=== PATIENT | male | born 1985 | race Caucasian/White ===

== ENCOUNTER 2016-10-23 13:38 | Emergency (ER) | payer SELFPAY ==
[2016-10-23 17:09] LABS: Hemoglobin 14.8 gm/dL (13.5-18.0); Mean Cell Volume 92.4 fl (78-100); Mean Corpuscular Hemoglobin 30.4 pg (27-31); Mean Corpuscular Hgb Conc 32.9 g/dl (32-36); Mean Platelet Volume 10.2 fl (6.0-9.5); Neutrophil # 2.9 K/mm3 (1.3-6.0); Neutrophil % 54.3 % (42-75.0); Platelet Count 219 K/mm3 (150-450); Red Blood Count 4.87 M/mm3 (4.7-6.0); Red Cell Distribution Width 13.3 % (11.5-14.0); White Blood Count 5.4 K/mm3 (4.0-10.5)
[2016-10-23 17:28] LABS: ALT 33 U/L (19-67); AST 24 U/L (0-48); Albumin * 3.9 gm/dl (3.4-5.0); Alkaline Phosphatase * 48 U/L (50-170); Anion Gap 11.8 mmol/L (6.8-13.8); BUN/Creatinine Ratio 15.1 (9.0-21.6); Bilirubin, Total 0.5 mg/dL (0.0-1.1); Blood Urea Nitrogen 11 mg/dL (6-23); Ca. Corrected For Albumin 8.7 mg/dL (8.4-10.2); Calcium * 8.9 mg/dL (7.9-10.9); Carbon Dioxide 30.8 mmol/L (24-32.6); Chloride 103 mmol/L (97-106); Glucose * 93 mg/dL (70-110); Potassium 4.6 mmol/L (3.4-4.6); Salicylate Less than 2.8 mg/dL (2.8-20.0); Sodium 141 mmol/L (132-142); TSH * 2.167 uIU/mL (0.358-3.74); Total Protein 7.1 gm/dL (6.2-8.2)
[2016-10-23 18:57] LABS: Cocaine Ur Negative (NEGATIVE); Urine Barbiturate Negative (NEGATIVE); Urine Benzodiazepines Negative (NEGATIVE); Urine Opiates Negative (NEGATIVE); Urine PCP Negative (NEGATIVE)
[2016-10-23 18:58] LABS: Urine THC Positive (NEGATIVE)
--- NOTE | 2016-10-23 19:43 | ERNOTE ---
Psychological HPI - Date Date of Service: 10/23/16 - General Chief Complaint: Psychiatric Problem Source: Reports: patient Exam Limitations: Reports: no limitations - Immun/Allergies/Home Medications Allergies/Adverse Reactions: Allergies cefaclor [From Ceclor] Adverse Reaction (Verified 10/23/16 14:02) tetanus and diphtheria toxoids Adverse Reaction (Verified 10/23/16 14:02) Home Medications: HOME MEDICATIONS NK [No Home Medication] 10/23/16 [Last Taken Unknown] - History of Present Illness Narrative: patient presents to the ED for psychiatric help. He was treated for bipolar in senior care and did well. He has been out of senior care for nearly a decade and has't been treated. He relates he tries to stay sober but will occasionally relapse. He has had a recent self mutilation because get will get mad at his new ( since the end of last year). He relates he can normally control it but sometimes he cannot control things and gets very med. He last self mutilated 2 days ago. No active SI or HI. He wants something to help him as he is not sure when he will get mad. Time Seen by Provider: 10/23/16 16:33 Arrived by: Reports: private car Onset/duration: Reports: intermittent Intent: Reports: suicide, other - self mutilation when angry. Situational Problems: Reports: spouse Associated Symptoms: Reports: angry. Denies: agitated, paranoid, confused, hallucinating, suicidal thoughts Prior Treament: Denies: recently seen Review of Systems - Review of Systems Constitutional: Absent: fever ENT: Present: no symptoms reported Respiratory: Absent: shortness of breath Cardiology: Absent: chest pain Gastrointestinal/Abdominal: Absent: abdominal pain Genitourinary: Absent: dysuria All Other Systems: All systems neg except as marked - Patient's Past Medical History Patient History - Medical: Anxiety, Bipolar, Depression Patient History - Cardiac/Respiratory: Hypertension Patient History - Cancer: No Hx of Cancer Patient History - Surgical Procedures: No surgical history Patient History - Other: None - Social History Living Situations: home Psych History: Hx of Anxiety, Hx of Depression, Hx of Schizophrenia Smoking Status: Current every day smoker Alcohol Use: occasionally Drug Use: meth - Immunizations Immunizations Up to Date: No Physical Exam - Physical Exam General Appearance: Present: alert, no apparent distress Eye Exam: Normal inspection: bilateral, PERRL: bilateral Ears, Nose, Throat: Present: normal ENT inspection Neck: Present: normal inspection Respiratory: Present: no respiratory distress, normal breath sounds, no accessory muscle use, lungs clear Cardiovascular/Chest: Present: regular rate, rhythm, normal peripheral pulses Gastrointestinal/Abdominal: Present: normal bowel sounds, nondistended, soft. Absent: tenderness Back Exam: Present: normal range of motion Extremity Exam: Present: normal inspection, other - healing self mutilation johnson left arm. No infection Neurological Exam: Present: alert, no motor/sensory deficits, packager machine II-XII nml as tested, other - No agiation. Some flat affect. Skin Exam: Present: normal color ED Progress - Results and Orders Patient's Lab Results:: I have reviewed the patient's lab results. - Vital Signs Patient's Vital Signs:: I have reviewed the patient's vital signs. Vital Signs: Vital Signs 10/23/16 13:51 Temperature 36.8 C Pulse Rate 88 Respiratory 14 Rate Blood Pressure 160/96 O2 Sat by Pulse 99 Oximetry - Progress/Reassessment Chief Complaint: Psychiatric Problem - Transfer of Care Physician Sign Out: Peter Doss Receiving Physician: Merlin Lagunas Additional Notes: Await attempt for inpatient eval. Departure Clinical Impression: Self-mutilation - Departure
[2016-10-23 20:13] VITALS: BP 136/92
== END 2016-10-23 21:40 | disposition home or self-care (01) ==
LOC: ER 13:38
DX: F99 Mental disorder, not otherwise specified (principal); Z91.5 Personal history of self-harm
CPT/HCPCS: 36415; 80053; 80307; 84443; 85025; 99284; G0480; G0481

== ENCOUNTER 2017-01-05 09:45 | Emergency (ER) | payer OTHER ==
[2017-01-05] MEDS ORDERED: NORMAL SALINE 1,000 ML IV ONE (09:56)
[2017-01-05 10:04] LABS: Hematocrit 40.7 % (42.0-52.0); Hemoglobin 13.9 gm/dL (13.5-18.0); Mean Cell Volume 89.3 fl (78-100); Mean Corpuscular Hemoglobin 30.5 pg (27-31); Mean Corpuscular Hgb Conc 34.2 g/dl (32-36); Mean Platelet Volume 10.4 fl (6.0-9.5); Neutrophil # 4.5 K/mm3 (1.3-6.0); Neutrophil % 67.7 % (42-75.0); Platelet Count 197 K/mm3 (150-450); Red Blood Count 4.56 M/mm3 (4.7-6.0); Red Cell Distribution Width 13.1 % (11.5-14.0); White Blood Count 6.6 K/mm3 (4.0-10.5)
--- NOTE | 2017-01-05 10:05 | ERNOTE ---
Medical Problem HPI - General Chief Complaint: Drug Overdose Source: patient, EMS Exam Limitations: no limitations - Immun/Allergies/Home Medications Immunizations: IMMUNIZATION HX Immunizations Up to Date No Allergies/Adverse Reactions: Allergies cefaclor [From Ceclor] Adverse Reaction (Verified 01/05/17 10:08) tetanus and diphtheria toxoids Adverse Reaction (Verified 01/05/17 10:08) Home Medications: HOME MEDICATIONS Amphetamine [Adzenys Xr-Odt 12.5 mg Tablet] 12.5 mg PO DAILY 01/05/17 [Last Taken Unknown] clonazePAM [Klonopin] 1 mg PO HS PRN 01/05/17 [Last Taken Unknown] traZODone HCL [Trazodone HCl] 50 mg PO HS 01/05/17 [Last Taken Unknown] - History of Present History Narrative: Patient is brought into the emergency department by the EMS service after the called stating that Rock taken an inordinate amount of his medications. Patient states that he was not suicidal however he took roughly 30 trazodone 6 Klonopin to assist him to sleep for a day or 2 and hopefully all of his problems are gone away. Patient stated that he wash down the variety of pills with 2 shots of whiskey. Patient is adamant in stating that he is not suicidal , but does admit to poor judgment. Patient states that he has been taking his trazodone as it has been prescribed however his last prescription was filled one month ago and the bottle is now empty. It is unlikely that there were 30 trazodone in the bottle as the was prescribed on December 07 of this year. Timing: constant Severity: mild Review of Systems - Review of Systems Constitutional: Present: See HPI EYE: Present: no symptoms reported ENT: Present: no symptoms reported Respiratory: Present: no symptoms reported Cardiology: Present: no symptoms reported Gastrointestinal/Abdominal: Present: no symptoms reported Genitourinary: Present: no symptoms reported Musculoskeletal: Present: no symptoms reported Skin: Present: no symptoms reported Neurological: Present: no symptoms reported Endocrine: Present: no symptoms reported Hematologic/Lymphatic: Present: no symptoms reported Psych: Present: other - while the patient does admit to some underlying depression he states he is not suicidal - Patient's Past Medical History Patient History - Medical: Anxiety, Bipolar, Depression Patient History - Cardiac/Respiratory: Hypertension Patient History - Cancer: No Hx of Cancer Patient History - Surgical Procedures: No surgical history Patient History - Other: None - Social History Living Situations: home Abuse History: Hx of Substance Use Psych History: Hx of Anxiety, Hx of Depression, Hx of Schizophrenia Alcohol Use: occasionally Drug Use: meth - Immunizations Immunizations Up to Date: No Physical Exam - Physical Exam General Appearance: Present: wd/wn, alert, no apparent distress Eye Exam: Normal inspection: bilateral, PERRL: bilateral Ears, Nose, Throat: Present: normal ENT inspection, normal pharynx, other - extraordinarily poor dentition Neck: Present: normal inspection, nontender Respiratory: Present: no respiratory distress, normal breath sounds, no accessory muscle use, chest nontender, lungs clear Cardiovascular/Chest: Present: no murmur, normal peripheral pulses, tachycardia Gastrointestinal/Abdominal: Present: normal bowel sounds, nontender, nondistended, soft, no organomegaly Rectal Exam: Present: deferred Back Exam: Present: normal inspection, normal range of motion Extremity Exam: Present: normal inspection, non-tender, no edema, normal range of motion Neurological Exam: Present: alert, oriented, normal mood/affect Skin Exam: Present: normal color, warm/dry Lymphatic Exam: Present: no adenopathy ED Progress - Results and Orders Patient's Lab Results:: I have reviewed the patient's lab results. - Vital Signs Patient's Vital Signs:: I have reviewed the patient's vital signs. - EKG EKG Comments: EKG reviewed by me - Progress/Reassessment Chief Complaint: Drug Overdose Plan - Plan Plan: Patient once again adamantly denies being suicidal he states he has taken excess doses of trazodone in the past and it always helps him sleep and he was unaware that the amount that he took could've possibly been a problem. Now that the alcohol level is likely gone down to close to 0 from the 0.09 that it was patient is now up walking around and is desirous of going home. Patient did agree to have at least a second alcohol level done, and he showed no abnormalities on his EKG. He was given an amp of bicarbonate IV as well as 2 A in a bag of LR to help alkalize the urine may help excrete the trazodone. Also given 50 g of activated charcoal with sorbitol is we're within the 2 hours from the time of ingestion. The patient's is here agrees to keep an eye on him throughout the day and agrees to bring him back if he starts acting abnormally Departure - Departure Clinical Impression: Medication administered in error Qualifiers: Encounter type: initial encounter Injury intent: accidental or unintentional Qualified Code(s): T50.901A - Poisoning by unspecified drugs, medicaments and biological substances, accidental (unintentional), initial encounter Condition: Good Instructions: Basics of Medicine Management, Accidental Overdose
[2017-01-05 10:09] LABS: Prothrombin Time (Patient) 10.4 Seconds (9.4-11.4)
[2017-01-05 10:16] LABS: ALT 23 U/L (19-67); AST 17 U/L (0-48); Albumin * 3.4 gm/dl (3.4-5.0); Alkaline Phosphatase * 50 U/L (50-170); Anion Gap 12.1 mmol/L (6.8-13.8); BUN/Creatinine Ratio 11.1 (9.0-21.6); Bilirubin, Total 0.2 mg/dL (0.0-1.1); Blood Urea Nitrogen 8 mg/dL (6-23); CK Total * 195 U/L (0-259); Ca. Corrected For Albumin 8.7 mg/dL (8.4-10.2); Calcium * 8.5 mg/dL (7.9-10.9); Carbon Dioxide 28.3 mmol/L (24-32.6); Chloride 104 mmol/L (97-106); Glucose * 92 mg/dL (70-110); Magnesium 1.7 mg/dL (1.2-2.8); Potassium 3.4 mmol/L (3.4-4.6); Salicylate Less than 2.8 mg/dL (2.8-20.0); Sodium 141 mmol/L (132-142); Total Protein 6.7 gm/dL (6.2-8.2)
[2017-01-05] MEDS ORDERED: CHARCOAL/SORBITOL SOLUTION 50 G/240 ML BTL PO ONE ×2 (10:27→10:29)
[2017-01-05 10:41] LABS: Urine Bilirubin Negative (NEGATIVE); Urine Blood Negative /ul (NEGATIVE); Urine Ketone Negative (NEGATIVE); Urine Nitrite Negative (NEGATIVE); Urine Protein Negative (NEGATIVE); Urine Urobilinogen Normal (NORMAL); Urine pH 7.5 pH (5.0-7.0)
[2017-01-05] MEDS ORDERED: SODIUM BICARBONATE 1 MEQ/ML SYRG IV ONE ×2 (10:49→11:15)
[2017-01-05 10:52] LABS: Urine Appearance Clear; Urine Bacteria None Seen; Urine Color Yellow; Urine RBC None Seen /hpf (0-5); Urine WBC None Seen /hpf (0-5)
[2017-01-05 11:01] LABS: Cocaine Ur Negative (NEGATIVE); Urine Barbiturate Negative (NEGATIVE); Urine Benzodiazepines Negative (NEGATIVE); Urine Opiates Negative (NEGATIVE); Urine PCP Negative (NEGATIVE); Urine THC Negative (NEGATIVE)
[2017-01-05] MEDS ORDERED: SODIUM BICARBONATE IV ONE ×4 (12:00)
[2017-01-05] MEDS ORDERED: RINGERS LACTATED IV ONE ×4 (12:00)
[2017-01-05 14:05] VITALS: BP 134/82
== END 2017-01-05 13:55 | disposition home or self-care (01) ==
LOC: ER 09:45
DX: T43.212A Poisoning by selective serotonin and norepinephrine reuptake inhibitors, intentional self-harm, initial encounter (principal)
CPT/HCPCS: 36415; 36600; 80053; 80307; 81001; 82550; 82803; 83735; 85025; 85610; 93005; 96374; 99284; G0480; G0481